=== PATIENT | female | born 1985 | race Caucasian/White ===

== ENCOUNTER 2022-04-29 11:27 | Inpatient (IN) | payer SELFPAY ==
--- OUTSIDE RECORDS SUMMARY | 2022-04-29 11:31 | XMS REPORT | Continuity of Care Document ---
:1985 Author Organization [facility] t Address [address] [place] [address] Care Team Providers Name Role Phone Jl Easton MD Primary Care Physician Jl Easton MD Attending Clinician JL EASTON Attending Clinician Unavailable Doctor Unassigned, [place] Attending Clinician Unavailable Yulisa Walsh RN Attending Clinician Unavailable Payers Payer Name Policy Type Policy Number Effective Date Expiration Date S amy [employer] [id number] 2019 NON-CONTRACT 00:00:00 GENERIC Problems Condition Condition Condition Status Onset Resolution Last Treating Co mments Source Name Details Category Date Date Treatment Clinician Date Anxiety Anxiety Disease Active Univers 08-28 ity of 00:00: [place] 00 Medical Branch Substance Substance Disease Active 2014-03 Overview: Univers abuse abuse 1-17 Formattin ity of 00:00: g of this [place] 00 note Medical might be Branch different from the original. Xanax and hyrdrocod one Attention Attention Disease Active 2014-03 Uni vers deficit deficit 1-17 ity of disorder disorder 00:00: [place] of adult of adult 00 Medica l Branch Mixed Mixed Disease Active Overview: Univer s bipolar I bipolar I 7-15 Formattin i ty of disorder disorder 00:00: g of this [place] 00 note Medical might be Branch different from the original. ICD10 Diagnosis Term Salesperson Books Utility Allergies, Adverse Reactions, Alerts Allergy Allergy Status Severity Reaction(s) Onset Inactive Treating Comm ents Source Name Type Date Date Clinician NO KNOWN Drug Active Univers ALLERGIE Class ity of S [facility] Social History Social Habit Start Date Stop Date Quantity Comments Source History of tobacco Cigarette Smoker University of use [facility] Exposure to Not sure University of SARS-CoV-2 (event) [facility] Cigarettes smoked 2022-01-22 2022-01-22 Univers ity of current (pack per 00:00:00 00:00:00 ) - Reported Branch Tobacco use and 2022-01-22 2022-01-22 Smokeless Universit y of exposure 00:00:00 00:00:00 tobacco non-user [facility] Alcohol intake 2022-01-22 2022-01-22 0 /d University 00:00:00 00:00:00 [facility] Sex Ass[birth year] Universit y of 00:00:00 00:00:00 [facility] Smoking Status Start Date Stop Date Source Smokes tobacco daily 2022-01-22 00:00:00 Univers ity of [facility] Medications Ordered Filled Start Stop Current Ordering Indication Dosage Frequency Signature Comments Components Source Medication Medication Date Date Medication? Clinician (SIG) Name Name ALPRAZOLAM Yes [id number] TAKE 1 U nivers 1 mg tablet 8-15 TABLET BY ity of 00:00: MOUTH IN [place] 00 THE Medical MORNING Branch AND IN THE EVENING ALPRAZOLAM Yes [id number] TAKE 1 U nivers 1 mg tablet 8-15 TABLET BY ity of 00:00: MOUTH IN [place] 00 THE Medical MORNING Branch AND IN THE EVENING ALPRAZOLAM No [id number] TAKE 1 Univers 1 mg tablet 8-15 -26 TABLET BY it y of 00:00: 00:00 MOUTH IN [place] 00 :00 THE Medical MORNING Branch AND IN THE EVENING dextroamphe Yes [id number] 30mg Take 1 Univers tamine-amph 8-12 tablet by ity of etamine 00:00: mouth in [place] (ADDERALL) 00 the Medical 30 mg morning Branch tablet and 1 tablet in the evening. dextroamphe Yes [id number] 30mg Take 1 Univers tamine-amph 8-12 tablet by ity of etamine 00:00: mouth in [place] (ADDERALL) 00 the Medical 30 mg morning Branch tablet and 1 tablet in the evening. dextroamphe 0 Yes [id number] 30mg Take 1 Univers tamine-amph 8-12 tablet by ity of etamine 00:00: mouth in [place] (ADDERALL) 00 the Medical 30 mg morning Branch tablet and 1 tablet in the evening. dextroamphe 0 2021- No [id number] 30mg Take 1 Univers tamine-amph 8-12 10-26 tablet by it y of etamine 00:00: 00:00 mouth in [place] (ADDERALL) 00 :00 the Medical 30 mg morning Branch tablet and 1 tablet in the evening. molnupiravi 0 Yes [id number] 800mg Take 4 Univers r 200 mg 7-27 capsules ity of capsule 00:00: by mouth [place] 00 every 12 Medical (twelve) Branch hours. molnupiravi 0 Yes [id number] 800mg Take 4 Univers r 200 mg 7-27 capsules ity of capsule 00:00: by mouth [place] 00 every 12 Medical (twelve) Branch hours. molnupiravi 0 Yes [id number] 800mg Take 4 Univers r 200 mg 7-27 capsules ity of capsule 00:00: by mouth [place] 00 every 12 Medical (twelve) Branch hours. molnupiravi 0 Yes [id number] 800mg Take 4 Univers r 200 mg 7-27 capsules ity of capsule 00:00: by mouth [place] 00 every 12 Medical (twelve) Branch hours. molnupiravi 0 Yes [id number] 800mg Take 4 Univers r 200 mg 7-27 capsules ity of capsule 00:00: by mouth [place] 00 every 12 Medical (twelve) Branch hours. molnupiravi 0 Yes [id number] 800mg Take 4 Univers r 200 mg 7-27 capsules ity of capsule 00:00: by mouth [place] 00 every 12 Medical (twelve) Branch hours. molnupiravi 0 2021- No [id number] 800mg Take 4 Univers r 200 mg 7-27 10-26 capsules ity of capsule 00:00: 00:00 by mouth [place] 00 :00 every 12 Medical (twelve) Branch hours. ALPRAZolam 2022-0 Yes [id number] 1mg Take 1 U nivers 1 mg tablet 7-12 tablet by ity of 00:00: mouth in [place] 00 the Medical morning Branch and 1 tablet in the evening. dextroamphe 2-0 Yes [id number] 30mg Take 1 Univers tamine-amph 7-12 tablet by ity of etamine 00:00: mouth in [place] (ADDERALL) 00 the Medical 30 mg morning Branch tablet and 1 tablet in the evening. ALPRAZolam 2021-0 Yes [id number] 1mg Take 1 U nivers 1 mg tablet 7-12 tablet by ity of 00:00: mouth in [place] 00 the Medical morning Branch and 1 tablet in the evening. dextroamphe 2-0 Yes [id number] 30mg Take 1 Univers tamine-amph 7-12 tablet by ity of etamine 00:00: mouth in [place] (ADDERALL) 00 the Medical 30 mg morning Branch tablet and 1 tablet in the evening. ALPRAZolam 2021-0 Yes [id number] 1mg Take 1 U nivers 1 mg tablet 7-12 tablet by ity of 00:00: mouth in [place] 00 the Medical morning Branch and 1 tablet in the evening. dextroamphe 2-0 Yes [id number] 30mg Take 1 Univers tamine-amph 7-12 tablet by ity of etamine 00:00: mouth in [place] (ADDERALL) 00 the Medical 30 mg morning Branch tablet and 1 tablet in the evening. ALPRAZolam 2021-0 Yes [id number] 1mg Take 1 U nivers 1 mg tablet 7-12 tablet by ity of 00:00: mouth in [place] 00 the Medical morning Branch and 1 tablet in the evening. dextroamphe 2-0 Yes [id number] 30mg Take 1 Univers tamine-amph 7-12 tablet by ity of etamine 00:00: mouth in [place] (ADDERALL) 00 the Medical 30 mg morning Branch tablet and 1 tablet in the evening. ALPRAZolam 2021-0 Yes [id number] 1mg Take 1 U nivers 1 mg tablet 7-12 tablet by ity of 00:00: mouth in [place] 00 the Medical morning Branch and 1 tablet in the evening. dextroamphe 2022-0 Yes [id number] 30mg Take 1 Univers tamine-amph 7-12 tablet by ity of etamine 00:00: mouth in [place] ([facility]) 00 the Medical 30 mg morning Branch tablet and 1 tablet in the evening. ALPRAZolam 2-0 Yes [id number] 1mg Take 1 U nivers 1 mg tablet 7-12 tablet by ity of 00:00: mouth in [place] 00 the Medical morning Branch and 1 tablet in the evening. dextroamphe 2-0 Yes [id number] 30mg Take 1 Univers tamine-amph 7-12 tablet by ity of etamine 00:00: mouth in [place] ([facility]) 00 the Medical 30 mg morning Branch tablet and 1 tablet in the evening. ALPRAZolam 2021-0 Yes [id number] 1mg Take 1 U nivers 1 mg tablet 7-12 tablet by ity of 00:00: mouth in [place] 00 the Medical morning Branch and 1 tablet in the evening. dextroamphe 2-0 Yes [id number] 30mg Take 1 Univers tamine-amph 7-12 tablet by ity of etamine 00:00: mouth in [place] ([facility]) 00 the Medical 30 mg morning Branch tablet and 1 tablet in the evening. ALPRAZolam 2021-0 Yes [id number] 1mg Take 1 U nivers 1 mg tablet 7-12 tablet by ity of 00:00: mouth in [place] 00 the Medical morning Branch and 1 tablet in the evening. dextroamphe 2-0 Yes [id number] 30mg Take 1 Univers tamine-amph 7-12 tablet by ity of etamine 00:00: mouth in [place] ([facility]) 00 the Medical 30 mg morning Branch tablet and 1 tablet in the evening. ALPRAZolam 2021-0 Yes [id number] 1mg Take 1 U nivers 1 mg tablet 7-12 tablet by ity of 00:00: mouth in [place] 00 the Medical morning Branch and 1 tablet in the evening. dextroamphe 2-0 Yes [id number] 30mg Take 1 Univers tamine-amph 7-12 tablet by ity of etamine 00:00: mouth in [place] ([facility]) 00 the Medical 30 mg morning Branch tablet and 1 tablet in the evening. ALPRAZolam 2-0 Yes [id number] 1mg Take 1 U nivers 1 mg tablet 7-12 tablet by ity of 00:00: mouth in [place] 00 the Medical morning Branch and 1 tablet in the evening. ALPRAZolam 2021-2021- No [id number] 1mg Take 1 Univers 1 mg tablet 7-12 08-15 tablet by it y of 00:00: 00:00 mouth in [place] 00 :00 the Medical morning Branch and 1 tablet in the evening. dextroamphe 2021-0 2021- No [id number] 30mg Take 1 Univers tamine-amph 7-12 08-12 tablet by it y of etamine 00:00: 00:00 mouth in [place] (ADDERALL) 00 :00 the Medical 30 mg morning Branch tablet and 1 tablet in the evening. dextroamphe 2021-0 Yes [id number] 30mg Take 1 Univers tamine-amph 6-14 tablet by ity of etamine 00:00: mouth 2 [place] (ADDERALL) 00 (two) Medical 30 mg times Branch tablet daily. ALPRAZolam 2021- Yes [id number] 1mg Take 1 U nivers 1 mg tablet 6-14 tablet by ity of 00:00: mouth 2 [place] 00 (two) Medical times Branch daily. dextroamphe 2021-2021- No [id number] 30mg Take 1 Univers tamine-amph 6-14 07-12 tablet by it y of etamine 00:00: 00:00 mouth 2 [place] (ADDERALL) 00 :00 (two) Medical 30 mg times Branch tablet daily. ALPRAZolam 2021-2021- No [id number] 1mg Take 1 Univers 1 mg tablet 6-14 07-12 tablet by it y of 00:00: 00:00 mouth 2 [place] 00 :00 (two) Medical times Branch daily. dextroamphe 2021-0 Yes [id number] 30mg Take 1 Univers tamine-amph 5-24 tablet by ity of etamine 00:00: mouth 2 [place] (ADDERALL) 00 (two) Medical 30 mg times Branch tablet daily. dextroamphe 2021-0 2- No [id number] 30mg Take 1 Univers tamine-amph 5-24 06-14 tablet by it y of etamine 00:00: 00:00 mouth 2 [place] (ADDERALL) 00 :00 (two) Medical 30 mg times Branch tablet daily. dextroamphe 2021-0 Yes [id number] 30mg Take 1 Univers tamine-amph 4-19 tablet by ity of etamine 00:00: mouth 2 [place] (ADDERALL) 00 (two) Medical 30 mg times Branch tablet daily. dextroamphe 2021-0 2- No [id number] 30mg Take 1 Univers tamine-amph 4-19 05-24 tablet by it y of etamine 00:00: 00:00 mouth 2 [place] (ADDERALL) 00 :00 (two) Medical 30 mg times Branch tablet daily. dextroamphe 2021-0 Yes [id number] 30mg Take 1 Univers tamine-amph 3-24 tablet by ity of etamine 00:00: mouth 2 [place] (ADDERALL) 00 (two) Medical 30 mg times Branch tablet daily. dextroamphe 0 2021- No [id number] 30mg Take 1 Univers tamine-amph 3-24 04-19 tablet by it y of etamine 00:00: 00:00 mouth 2 [place] (ADDERALL) 00 :00 (two) Medical 30 mg times Branch tablet daily. azithromyci 2021-0 Yes [id number] 500mg Take 1 Univers n 500 mg 2-25 tablet by ity of tablet 00:00: mouth 00 daily. Medical Branch dextroamphe 2021-0 Yes [id number] 30mg Take 1 Univers tamine-amph 2-25 tablet by ity of etamine 00:00: mouth 2 [place] (ADDERALL) 00 (two) Medical 30 mg times Branch tablet daily. ALPRAZolam 2021-0 Yes [id number] 1mg Take 1 U nivers 1 mg tablet 2-25 tablet by ity of 00:00: mouth 2 [place] 00 (two) Medical times Branch daily. azithromyci 2021-0 Yes [id number] 500mg Take 1 Univers n 500 mg 2-25 tablet by ity of tablet 00:00: mouth [place] 00 daily. Medical Branch ALPRAZolam 2021-0 Yes [id number] 1mg Take 1 U nivers 1 mg tablet 2-25 tablet by ity of 00:00: mouth 2 [place] 00 (two) Medical times Branch daily. azithromyci 2021-0 Yes [id number] 500mg Take 1 Univers n 500 mg 2-25 tablet by ity of tablet 00:00: mouth [place] 00 daily. Medical Branch ALPRAZolam 2021-0 Yes [id number] 1mg Take 1 U nivers 1 mg tablet 2-25 tablet by ity of 00:00: mouth 2 [place] 00 (two) Medical times Branch daily. azithromyci 2021-0 Yes [id number] 500mg Take 1 Univers n 500 mg 2-25 tablet by ity of tablet 00:00: mouth [place] 00 daily. Medical Branch ALPRAZolam 2021-0 Yes [id number] 1mg Take 1 U nivers 1 mg tablet 2-25 tablet by ity of 00:00: mouth 2 [place] 00 (two) Medical times Branch daily. azithromyci 2021-0 Yes [id number] 500mg Take 1 Univers n 500 mg 2-25 tablet by ity of tablet 00:00: mouth [place] 00 daily. Medical Branch azithromyci 2021-0 Yes [id number] 500mg Take 1 Univers n 500 mg 2-25 tablet by ity of tablet 00:00: mouth [place] 00 daily. Medical Branch azithromyci 2021-0 Yes [id number] 500mg Take 1 Univers n 500 mg 2-25 tablet by ity of tablet 00:00: mouth [place] 00 daily. Medical Branch azithromyci 2021-0 Yes [id number] 500mg Take 1 Univers n 500 mg 2-25 tablet by ity of tablet 00:00: mouth [place] 00 daily. Medical Branch azithromyci 2021-0 Yes [id number] 500mg Take 1 Univers n 500 mg 2-25 tablet by ity of tablet 00:00: mouth [place] 00 daily. Medical Branch azithromyci 2021-0 Yes [id number] 500mg Take 1 Univers n 500 mg 2-25 tablet by ity of tablet 00:00: mouth [place] 00 daily. Medical Branch azithromyci 2021-0 Yes [id number] 500mg Take 1 Univers n 500 mg 2-25 tablet by ity of tablet 00:00: mouth [place] 00 daily. Medical Branch azithromyci 2021-0 Yes [id number] 500mg Take 1 Univers n 500 mg 2-25 tablet by ity of tablet 00:00: mouth [place] 00 daily. Medical Branch azithromyci 2021-0 Yes [id number] 500mg Take 1 Univers n 500 mg 2-25 tablet by ity of tablet 00:00: mouth [place] 00 daily. Medical Branch azithromyci 2021-0 Yes [id number] 500mg Take 1 Univers n 500 mg 2-25 tablet by ity of tablet 00:00: mouth [place] 00 daily. Medical Branch azithromyci 2021-0 Yes [id number] 500mg Take 1 Univers n 500 mg 2-25 tablet by ity of tablet 00:00: mouth [place] 00 daily. Medical Branch azithromyci 2021-0 Yes [id number] 500mg Take 1 Univers n 500 mg 2-25 tablet by ity of tablet 00:00: mouth [place] 00 daily. Medical Branch azithromyci 2021-0 Yes [id number] 500mg Take 1 Univers n 500 mg 2-25 tablet by ity of tablet 00:00: mouth [place] 00 daily. Medical Branch azithromyci 0 Yes [id number] 500mg Take 1 Univers n 500 mg 2-25 tablet by ity of tablet 00:00: mouth [place] 00 daily. Medical Branch azithromyci 2021-0 Yes [id number] 500mg Take 1 Univers n 500 mg 2-25 tablet by ity of tablet 00:00: mouth [place] 00 daily. Medical Branch azithromyci 0 Yes [id number] 500mg Take 1 Univers n 500 mg 2-25 tablet by ity of tablet 00:00: mouth [place] 00 daily. Medical Branch ALPRAZolam 2021- No [id number] 1mg Take 1 Univers 1 mg tablet 2-25 06-14 tablet by it y of 00:00: 00:00 mouth 2 [place] 00 :00 (two) Medical times Branch daily. dextroamphe 2021- No [id number] 30mg Take 1 Univers tamine-amph 2-25 03-24 tablet by it y of etamine 00:00: 00:00 mouth 2 [place] (ADDERALL) 00 :00 (two) Medical 30 mg times Branch tablet daily. ALPRAZolam Yes [id number] 1mg Take 1 U nivers 1 mg tablet 1-19 tablet by ity of 00:00: mouth 2 [place] 00 (two) Medical times Branch daily. dextroamphe 2021- Yes [id number] 30mg Take 1 Univers tamine-amph 1-19 tablet by ity of etamine 00:00: mouth 2 [place] (ADDERALL) 00 (two) Medical 30 mg times Branch tablet daily. Procedures Procedure Date / Time Performing Clinician Source Performed AUTHORIZATION FOR RELEASE 2021-10-23 05:01:00 Doctor Unassigned, [facility] STATEMENT OF PATIENT 2021-05-24 06:01:00 Doctor Lashandasscarla, [facility] FINANCIAL RESPONSIBILITY [place] [facility] Encounters Start End Encounter Admission Attending Care Care Encounter Source Date/Time Date/Time Type Type Clinicians Facility Department ID 2022-01-22 2022-01-22 [facility] 1.2.840.114 [id number] Univers 00:00:00 00:00:00 Jl GLOSTER 350.1.13.10 i ty of [place] [id number] [address] 2022-01-21 2022-01-21 [facility] 1..840.114 [id number] Univers 00:00:00 00:00:00 [facility] 350.1.13.10 it y of [place] [facility] 4.2.7.2.686 [place] OSWALD?BLEA [id number] [address] MEDICAL [facility] 2021-11-15 2021-11-15 Outpatient [facility] [id number] Univers 16:00:00 16:00:00 JL [facility] 2021-11-15 2021-11-15 [facility] 1..840.114 [id number] Univers 00:00:00 00:00:00 [facility] 350.1.13.10 it y of [place] [facility] 4.2.7.2.686 [place] OSWALD?BLEA [id number] [address] [facility] 2021-11-11 2021-11-11 Outpatient [facility] [id number] Univers 09:00:00 09:00:00 JL [facility] 2021-11-10 2021-11-10 Refill [facility] 1.2.840.114 [id number] Univers 00:00:00 00:00:00 [facility] 350.1.13.10 it y of [place] 4.2.7.2.686 [place] OSWALD?BLEA [id number] [address] [facility] 2021-11-08 2021-11-08 Refill [facility] 1.2.840.114 [id number] Univers 00:00:00 00:00:00 Jl [facility] 350.1.13.10 it y of [place] 4.2.7.2.686 [place] OSWALD?BLEA [id number] [address] 2021-11-06 2021-11-06 Outpatient R [facility] [id number] Univers 15:30:00 15:30:00 [facility] 2021-11-04 2021-11-04 Outpatient R [facility] [id number] Univers 13:15:00 13:15:00 [facility] 2021-11-01 2021-11-01 Letter [facility] 1.2.840.114 [id number] Univers 00:00:00 00:00:00 (Out) [facility] 350.1.13.10 it y of [place] 4.2.7.2.686 [place] OSWALD?BLEA [id number] [address] 2021-10-23 2021-10-23 Outpatient R [facility] [id number] Univers 15:15:00 15:15:00 [facility] 2021-10-23 2021-10-23 Telephone [facility] 1.2.840.114 [id number] Univers 00:00:00 00:00:00 Jl [facility] 350.1.13.10 it y of [place] 4.2.7.2.686 [place] OSWALD?BLEA [id number] [address] [facility] 2021-10-23 2021-10-23 Orders Doctor PLASCENCIA 1.2.840.114 [id number] Univers 00:00:00 00:00:00 Only Unassigned, ELIZABETH 350.1.13.10 ity of [place] [facility] 4.2.7.2.686 [place] as [id number] [address] 2021-10-22 2021-10-22 Letter [facility] 1.2.840.114 [id number] Univers 00:00:00 00:00:00 (Out) [facility] 350.1.13.10 it y of [place] 4.2.7.2.686 [place] OSWALD?BLEA [id number] [address] [facility] 2021-10-15 2021-10-15 Telephone [facility] 1.2.840.114 [id number] Univers 00:00:00 00:00:00 [facility] 350.1.13.10 it y of [place] 4.2.7.2.686 [place] OSWALD?BLEA [id number] [address] [facility] 2021-10-10 2021-10-10 [facility] 1.2.840.114 [id number] Univers 00:00:00 00:00:00 [facility] 350.1.13.10 it y of [place] 4.2.7.2.686 [place] OSWALD?BLEA [id number] [address] 2021-10-09 2021-10-09 [facility] 1.2.840.114 [id number] Univers 00:00:00 00:00:00 Jl GLOSTER 350.1.13.10 i ty of [place] [id number] [address] 2021-10-08 2021-10-08 [facility] 1.[facility].840.114 [id number] Univers 00:00:00 00:00:00 [facility] 350.1.13.10 it y of [place] 4.2.7.2.686 [place] OSWALD?BLEA [id number] [address] [facility] 2021-10-07 2021-10-07 [facility] 1.2.840.114 [id number] Univers 00:00:00 00:00:00 Jl HEALTH 350.1.13.10 it y of [place] 4.2.7.2.686 [place] OSWALD?BLEA [id number] [address] [facility] 2021-10-07 2021-10-07 [facility] 1.2.840.114 [id number] Univers 00:00:00 00:00:00 Jl HEALTH 350.1.13.10 it y of [place] 4.2.7.2.686 [place] OSWALD?BLEA [id number] [address] 2021-09-10 2021-09-10 [facility] 1.2.840.114 [id number] Univers 00:00:00 00:00:00 Jl HEALTH 350.1.13.10 it y of [place] 4.2.7.2.686 [place] OSWALD?BLEA [id number] [address] [facility] 2021-08-19 2021-08-19 [facility] 1.2.840.114 [id number] Univers 00:00:00 00:00:00 Jl HEALTH 350.1.13.10 it y of [place] 4.2.7.2.686 [place] OSWALD?BLEA [id number] [address] 2021-07-16 2021-07-16 [facility] 1.2.840.114 [id number] Univers 00:00:00 00:00:00 Jl HEALTH 350.1.13.10 it y of [place] 4.2.7.2.686 [place] OSWALD?BLEA [id number] [address] 2021-06-19 2021-06-19 [facility] 1.2.840.114 [id number] Univers 00:00:00 00:00:00 Jl HEALTH 350.1.13.10 it y of [place] 4.2.7.2.686 [place] OSWALD?BLEA [id number] [address] [facility] 2021-05-24 2021-05-24 Outpatient Aidee [facility] [id number] Univers 13:30:00 13:30:00 JL louie [facility] 2021-05-24 2021-05-24 Outpatient R PAULA [facility] [id number] Univers 10:15:00 10:15:00 JL [facility] 2021-05-24 2021-05-24 Orders Doctor TEMO 1.2.840.114 [id number] Univers 00:00:00 00:00:00 Only Unassigned, ELIZABETH 350.1.13.10 ity of [place] [facility] 4.2.7.2.686 [place] as [id number] [address] 2021-05-17 2021-05-17 [facility] 1.2.840.114 [id number] Univers 00:00:00 00:00:00 [facility] 350.1.13.10 it y of [place] 4.2.7.2.686 [place] as OSWALD?BLEA [id number] [address] [facility] 2021-05-15 2021-05-15 [facility] 1.2.840.114 [id number] Univers 00:00:00 00:00:00 [facility] 350.1.13.10 it y of [place] 4.2.7.2.686 [place] as OSWALD?BLEA [id number] [address] [facility] 2021-04-17 2021-04-17 [facility] 1.2.840.114 [id number] Univers 00:00:00 00:00:00 [facility] 350.1.13.10 it y of [place] 4.2.7.2.686 [place] as OSWALD?BLEA [id number] [address] [facility] 2021-04-16 2021-04-16 [facility] 1.2.840.114 [id number] Univers 00:00:00 00:00:00 [facility] 350.1.13.10 it y of [place] 4.2.7.2.686 [place] as OSWALD?BLEA [id number] Pr argelia FORRESTER [address] [place] [address] [facility] 2021-03-06 2021-03-06 [facility] 1.2.840.114 [id number] Univers 00:00:00 00:00:00 [facility] HEALTH 350.1.13.10 it y of [place] 4.2.7.2.686 [place] as OSWALD?BLEA [id number] Pr argelia FORRESTER [address] [place] [address] [facility] 2021-02-22 2021-02-22 [facility] 1.2.840.114 [id number] Univers 00:00:00 00:00:00 [facility] 350.1.13.10 it y of [place] 4.2.7.2.686 [place] as PROFESSIO [id number] [facility] MAG[facility]ON [address] [place] [address] 2021-02-12 2021-02-12 [facility] 1.2.840.114 [id number] [facility] [place] [facility] 00:00:00 00:00:00 [facility] 350.1.13.10 it y of [place] 4.2.7.2.686 [place] as OSWALD?BLEA [id number] [address] [facility] 2021-02-05 2021-02-05 [facility] 1.2.840.114 [id number] Univers 00:00:00 00:00:00 [facility] 350.1.13.10 it y of [place] 4.2.7.2.686 [place] as OSWALD?BLEA [id number] Pr argelia FORRESTER [address] [place] [address] [facility] 2021-02-04 2021-02-04 [facility] 1.2.840.114 [id number] Univers 00:00:00 00:00:00 [facility] 350.1.13.10 it y of [place] 4.2.7.2.686 [place] as OSAWLD?BLEA [id number] Me [address] [facility] 2021-01-14 2021-01-14 Telephone [facility] 1.2.840.114 [id number] Univers 00:00:00 00:00:00 Jl Health 350.1.13.10 it y of [place] 4.2.7.2.686 [place] as Oswald?Blea [id number] [address] Office [facility] 2021-01-08 2021-01-08 [facility] 1.2.840.114 [id number] Univers 00:00:00 00:00:00 Jl Health 350.1.13.10 it y of [place] 4.2.7.2.686 [place] Oswald?Blea [id number] [address] Office [facility] 2020-12-14 2020-12-14 [facility] 1.2.840.114 [id number] Univers 00:00:00 00:00:00 [facility] [id number] it y of [place] [id number] Kwaku as Oswald?Blea [phone] [address] Office [facility] 2020-12-13 2020-12-13 [facility] 1.2.840.114 [id number] Univers 00:00:00 00:00:00 [facility] 350.1.13.10 it y of [place] [id number] Kwaku as Oswald?Blea [phone] [address] Medical Office [facility] 2020-12-11 2020-12-11 [facility] 1.2.840.114 [id number] Univers 00:00:00 00:00:00 [facility] 350.1.13.10 it y of [place] 4.2.7.2.686 Kwaku as Oswald?Blea [phone] [address] Office [facility] 2020-12-11 2020-12-11 [facility] 1.2.840.114 [id number] Univers 00:00:00 00:00:00 [facility] [id number] it y of [place] 4.2.7.2.686 Kwaku as Professio [phone] [address] One 2020-11-05 2020-11-05 Telephone Jillian Perdue 1.2.840.114 [id number] Univers 00:00:00 00:00:00 , Yulisa Valerio [id number] ity [place] [phone] [address] 2020-10-19 2020-10-19 [facility] 1.2.840.114 [id number] [facility] 00:00:00 00:00:00 [facility] [id number] it y of [place] 4.2.7.2.686 Kwaku as Professio [phone] [address] One 2020-10-05 2020-10-05 [facility] 1.2.840.114 [id number] [facility] 15:57:49 16:12:49 Visit [facility] [id number] it y of [place] 4.2.7.2.686 Kwaku as Professio [phone] [address] One 2020-10-05 2020-10-05 Outpatient [facility] [id number] Univers 16:00:00 16:00:00 JL [facility] 2020-10-01 2020-10-01 Outpatient [facility] [id number] Univers 10:45:00 10:45:00 JL [facility] 2020-09-28 2020-09-28 Outpatient [facility] [id number] Univers 08:15:00 08:15:00 JL [facility] 2020-09-28 2020-09-28 Orders Doctor PLASCENCIA 1.2.840.114 [id number] Univers 00:00:00 00:00:00 Only Unassigned, ELIZABETH [id number] ity of [place] [facility] 4.2.7.2.686 Kwaku as [phone] [address] 2020-09-19 2020-09-19 [facility] 1.2.840.114 [id number] Univers 00:00:00 00:00:00 [facility] 350.1.13.10 it y of [place] 4.2.7.2.686 Kwaku as Professio [phone] [address] One 2020-09-13 2020-09-13 [facility] 1.2.840.114 [id number] Univers 00:00:00 00:00:00 [facility] Health [id number] it y of [place] 4.2.7.2.686 Kwaku as Professio [phone] [address] 2020-08-14 2020-08-14 [facility] 1.2.840.114 [id number] Univers 00:00:00 00:00:00 [facility] 350.1.13.10 it y of [place] 4.2.7.2.686 Kawku as Professio [phone] [address] 2020-07-20 2020-07-20 [facility] 1.2.840.114 [id number] Univers 00:00:00 00:00:00 [facility] 350.1.13.10 it y of [place] 4.2.7.2.686 Kwaku as Professio [phone] [address] 2020-06-28 2020-06-28 [facility] 1.2.840.114 [id number] Univers 00:00:00 00:00:00 [place] 350.1.13.10 i ty of [place]2.[place] Profess[place] [phone] [address] 2020-06-28 2020-06-28 [facility] 1.2.840.114 [id number] Univers 00:00:00 00:00:00 [facility] Health [id number] it y of [place] 4.2.7.2.686 Kwaku as Professio [phone] [address] One 2020-06-04 2020-06-04 Telephone [facility] 1.2.840.114 [id number] Univers 00:00:00 00:00:00 [facility] 350.1.13.10 it y of [place] 4.2.7.2.686 Kwaku as Professio [phone] [address] One 2020-05-29 2020-05-29 Office [facility] 1.2.840.114 [id number] Univers 09:11:27 09:26:27 Visit [facility] 350.1.13.10 it y of [place] 4.2.7.2.686 Kwaku as Professio [phone] [address] One 2020-05-29 2020-05-29 Outpatient [facility] [id number] Univers 09:15:00 09:15:00 JL ity of [facility] 2020-05-11 2020-05-11 [facility] 1.2.840.114 [id number] [facility] 00:00:00 00:00:00 [facility] [id number] it y of [place] 4.2.7.2.686 Kwaku as Professio [phone] [address] One 2020-04-17 2020-04-17 [facility] 1.2.840.114 [id number] Univers 00:00:00 00:00:00 [facility] 350.1.13.10 it y of [place] 4.2.7.2.686 Kwaku as Professio [phone] [address] One 2020-03-19 2020-03-19 [facility] 1.2.840.114 [id number] Univers 00:00:00 00:00:00 [facility] 350.1.13.10 it y of [place] 4.2.7.2.686 Kwaku as Professio [phone] Pr deepa[address] Office [facility] One 2020-02-21 2020-02-21 Telephone [facility] 1.2.840.114 [id number] Univers 00:00:00 00:00:00 [facility] 350.1.13.10 it y of [place] 4.2.7.2.686 Kwaku as Professio [phone] [address] Office [facility] One 2020-02-21 2020-02-21 [facility] 1.2.840.114 [id number] Univers 00:00:00 00:00:00 [facility] 350.1.13.10 it y of [place] 4.2.7.2.686 Kwaku as Professio [phone] [address] One 2020-02-20 2020-02-20 [facility] 1.2.840.114 [id number] Univers 00:00:00 00:00:00 [facility] 350.1.13.10 it y of [place] 4.2.7.2.686 Kwaku as Professio [phone] [address] One 2020-02-03 2020-02-03 Outpatient [facility] [id number] Univers 08:30:00 08:30:00 [facility] 2020-01-27 2020-01-27 Office [facility] 1.2.840.114 [id number] Univers 08:12:27 09:20:41 Visit [facility] 350.1.13.10 it y of [place] 4.2.7.2.686 Kwaku as Professio [phone] [address] Office [facility] One 2020-01-27 2020-01-27 [facility] [id number] Univers 08:45:00 08:45:00 [facility] 2020-01-25 2020-01-25 [facility] 1.2.840.114 [id number] Univers 00:00:00 00:00:00 [facility] 350.1.13.10 it y of [place] 4.2.7.2.686 Kwaku as Professio [phone] [address] 2019-12-27 2019-12-27 [facility] 1.2.840.114 [id number] Univers 00:00:00 00:00:00 [facility] 350.1.13.10 it y of [place] 4.2.7.2.686 Kwaku as Professio [phone] [address] 2019-11-23 2019-11-23 [facility] [place] 1.2.840.114 [id number] Univers 00:00:00 00:00:00 Jl JOHNSON 350.1.13.10 it y of [facility] 4.2.7.2.686 Kwaku as [phone] [address] 2019-10-28 2019-10-28 [facility] 1.2.840.114 [id number] Univers 00:00:00 00:00:00 [facility] 350.1.13.10 [facility] 4.2.7.2.686 Kwaku as Professio [phone] [address] Office [facility] 2019-10-03 2019-10-03 [facility] 1.2.840.114 [id number] [facility] 09:05:24 09:20:24 Visit Jl Mazariegos 350.1.13.10 i ty of [facility] [place] [phone] [address] 2019-10-03 2019-10-03 [facility] [id number] Univers 09:00:00 09:00:00 JL snelly [facility] 2019-08-25 2019-08-25 [facility] 1.2.840.114 [id number] Univers 00:00:00 00:00:00 [facility] 350.1.13.10 it y of [place] 4.2.7.2.686 Kwaku as Professio [phone] [address] Office [facility] 2019-08-01 2019-08-01 [facility] 1.2.840.114 [id number] Univers 00:00:00 00:00:00 [facility] 350.1.13.10 it y of [place] 4.2.7.2.686 Kwaku as Professio [phone] Pr [address] One 2019-07-29 2019-07-29 [facility] 1.2.840.114 [id number] Univers 00:00:00 00:00:00 [facility] 350.1.13.10 it y of [place] 4.2.7.2.686 Kwaku as Professio [phone] Pr dic[address] One 2019-07-04 2019-07-04 [facility] 12.840.114 [id number] Univers 00:00:00 00:00:00 [facility] 350.1.13.10 it y of [place] 4.2.7.2.686 Kwaku as Professio [phone] Pr dical [address] One 2019-06-06 2019-06-06 Office [facility] 1.2.840.114 [id number] Univers 13:27:22 14:05:08 Visit [facility] 350.1.13.10 it y of [place] 4.2.7.2.686 Kwaku as Professio [phone] [address] One 2019-06-06 2019-06-06 [facility] [id number] Univers 13:30:00 13:30:00 JL alexander of [facility] Results This patient has no known results.
[2022-04-29] MEDS ORDERED: hydrOXYzine HCL 25 MG TAB ONE (12:36)
[2022-04-29 12:44] LABS: Urine Blood Trace-intact (Negative); Urine Glucose Negative (Negative); Urine Protein Negative (Negative); Urine pH 5.5 (5.0-7.0)
[2022-04-29 12:58] LABS: Absolute Lymphocytes (CBC) 1.4 K/uL (0.7-4.9); Hematocrit 37.1 % (36.0-45.0); Lymphocytes % 9.4 % (15.3-44.8); MCV 85.1 fL (80-100); MPV 7.9 fL (7.6-11.3); RBC Red Blood Cell Count 4.36 M/uL (3.86-4.86)
[2022-04-29 13:00] LABS: Protime INR 1.14
[2022-04-29 13:16] LABS: Albumin 3.4 g/dL (3.4-5.0); Bilirubin Total 0.3 mg/dL (0.2-1.0); Potassium 3.8 mmol/L (3.5-5.1); Protein, Total 7.8 g/dL (6.4-8.2)
--- NOTE | 2022-04-29 13:36 | RAD REPORT ---
EXAM DESCRIPTION: CTAbdomen Pelvis W Contrast - 04/29/2022 1:27 pm CLINICAL HISTORY: Abdominal pain. lower abdominal swelling, drainage COMPARISON: No comparisons TECHNIQUE: Biphasic CT imaging of the abdomen and pelvis was performed with 100 ml non-ionic IV cont rast. All CT scans are performed using dose optimization technique as appropriate and may include automated exposure control or mA/KV adjustment according to patient size. FINDINGS: The lung bases are clear. The liver, spleen, pancreas, adrenal glands and kidneys are within normal limits. No bowel obstruction, free air, free fluid or abscess. The appendix is normal. No evidence of signi ficant lymphadenopathy. No suspicious bony findings. Mild fat stranding lower pelvic subcutaneous fat in the region of the pannus. IMPRESSION: Mild fat stranding lower pelvic subcutaneous fat anteriorly, in the region of the pannus . No abscess.
[2022-04-29] MEDS ORDERED: LIDOCAINE 1% 20 ML MDV ONE ×2 (13:46→19:43)
--- NOTE | 2022-04-29 14:23 | ER ---
Nurse's Notes [facility] Name: Haven Valencia Age: 36 yrs Sex: Female : 1985 Arrival Date: 04/29/2022 Time: 11:35 Bed 25 Private MD: Diagnosis: Abdominal Wall Cellulitis - Failed Outpatient Therapy Presentation: 04/29 11:54 Chief complaint: Patient states: was seen at [facility] on 04/27/22 and dx with Cellulitis vg1 of ABD and LALO hip; pt states has been taking Bactrim for cellulitis and clindamycin for a toothache. Pt stated 'nothing has changed and Im scared it could be sepsis'. Coronavirus screen: Vaccine status: Patient reports being unvaccinated. Client denies travel out of the [place] in the last 14 days. Ebola Screen: Patient negative for fever greater than or equal to 101.5 degrees Fahrenheit, and additional compatible Ebola Virus Disease symptoms. Initial Sepsis Screen: Does the patient meet any 2 criteria? HR > 90 bpm. Yes. Initial Sepsis Screen: Does the patient meet any 2 criteria? Does the patient have a suspected source of infection?. Risk Assessment: Do you want to hurt yourself or someone else? Patient reports no desire to harm self or others. Onset of symptoms was April 27, 2022. 11:54 Method Of Arrival: Ambulatory vg1 11:54 Acuity: SHAYAN 3 vg1 Triage Assessment: 11:58 General: Appears uncomfortable, Behavior is cooperative, anxious. Pain: Complains of vg1 pain in lower ABD, LALO hips Pain currently is 5 out of 10 on a pain scale. Musculoskeletal: Circulation, motion, and sensation intact. SUBACUTE NURSE: 11:58 LMP 04/05/2022 vg1 Historical: - Allergies: 11:58 No Known Allergies; vg1 - Home Meds: 11:58 Bactrim DS Oral [Active]; Clindamycin Oral [Active]; vg1 - PMHx: 11:58 ADD/ADHD; Anxiety; Depression; drug abuse; vg1 - PSHx: 11:58 section; vg1 - Immunization history:: Client reports having NOT received the Covid vaccine. - Social history:: Smoking status: Patient reports the use of cigarette tobacco products, smokes one-half pack cigarettes per day, Reported history of juuling and/or vaping. Screenin:00 [facility] ED Fall Risk Assessment (Adult) History of falling in the last 3 months, jl7 including since admission No falls in past 3 months (0 pts). Abuse screen: Denies threats or abuse. Denies injuries from another. Nutritional screening: No deficits noted. Tuberculosis screening: No symptoms or risk factors identified. Assessment: 12:30 General: Appears in no apparent distress. uncomfortable, Behavior is cooperative, jl7 anxious. Pain: Complains of pain in abdomen Pain currently is 5 out of 10 on a pain scale. Neuro: Level of Consciousness is awake, alert, obeys commands, Oriented to person, place, time, situation. Cardiovascular: Patient's skin is warm and dry. Respiratory: Airway is patent Respiratory effort is even, unlabored, Respiratory pattern is regular, symmetrical. Derm: Skin is pink, warm \\T\\ dry. Abscess located on abdomen has purulent drainage. 13:30 Reassessment: Patient appears in no apparent distress at this time. Pt reports no jl7 change in anxiety level, reports "I do not want any narcotics.". 14:30 Reassessment: Patient appears in no apparent distress at this time. No changes from jl7 previously documented assessment. Patient and/or family updated on plan of care and expected duration. Pain level reassessed. Patient is alert, oriented x 3, equal unlabored respirations, skin warm/dry/pink. 15:30 Reassessment: Patient appears in no apparent distress at this time. No changes from jl7 previously documented assessment. Patient and/or family updated on plan of care and expected duration. Pain level reassessed. Patient is alert, oriented x 3, equal unlabored respirations, skin warm/dry/pink. 16:30 Reassessment: Patient appears in no apparent distress at this time. No changes from jl7 previously documented assessment. Patient and/or family updated on plan of care and expected duration. Pain level reassessed. Patient is alert, oriented x 3, equal unlabored respirations, skin warm/dry/pink. Vital Signs: 11:54 BP 129 / 100; Pulse 108; Resp 18; Temp 97.9(O); Pulse Ox 100% on R/A; Weight 136.08 kg vg1 (R); Height 5 ft. 6 in. (167.64 cm); Pain 5/10; 13:47 BP 159 / 100; Pulse 106; Resp 15; Pulse Ox 100% ; jl7 11:54 Body Mass Index 48.42 (136.08 kg, 167.64 cm) vg1 ED Course: 11:35 Patient arrived in ED. as 11:36 Antoni Zaragoza PA is PHCP. [facility] 11:36 Audie Ashley MD is Attending Physician. [facility] 11:58 Triage completed. vg1 11:58 Arm band placed on. vg1 12:38 Brice Solomon RN is Primary Nurse. jl7 12:47 Inserted saline lock: 20 gauge in right antecubital area, using aseptic technique. jl7 Blood collected. 12:48 Initial lab(s) drawn, by ED staff, sent to lab. First set of blood cultures drawn by ED jl7 staff. 13:00 Patient has correct armband on for positive identification. jl7 13:28 CT Abd/Pelvis - IV Contrast Only In Process Unspecified. EDMS 14:22 Rigoberto Ashley MD is Hospitalizing Provider. [facility] 15:00 No provider procedures requiring assistance completed. Patient admitted, IV remains in jl7 place. intact, No redness/swelling at site. 19:22 Primary Nurse role handed off by Brice Solomon RN [id number] Administered Medications: 12:44 Drug: hydrOXYzine 50 mg Route: PO; jl7 13:30 Follow up: Response: No adverse reaction jl7 15:31 Not Given (Physician Discretion): Lidocaine (1 %) 1 application 20 ml Infiltration [facility] once; to bedside 15:38 Drug: vancoMYCIN 1.5 grams Route: IVPB; Rate: calculated rate; Site: left forearm; jl7 17:38 Follow up: Response: No adverse reaction; IV Status: Completed infusion jl7 19:46 Drug: diphenhydrAMINE 12.5 mg Route: IVP; Site: left antecubital; kl 22:02 Follow up: Response: No adverse reaction; Marked relief of symptoms kl 20:00 Drug: Lidocaine (1 %) 20 ml {Note: administered by Antoni Ambrose.} Volume: 20 ml; Route: kl Infiltration; Medication: 12:30 VIS not applicable for this client. [facility] Outcome: 14:22 Decision to Hospitalize by Provider. [facility] 15:00 Admitted to ER Hold. Please see [employer] for further documentation. jl7 15:00 Condition: stable 15:00 Discharge instructions given to patient, Instructed on the need for admit, Demonstrated understanding of instructions. 04/30 08:45 Patient left the ED. kl Signatures: Dispatcher [employer] EDRanda Barclay, RN RN Antoni Skinner PA PA jmm Martinez, Amelia as Leal, Jahala, RN RN jl7 Dayan Stout 2 Jannette Rosas RN RN vg1 Corrections: (The following items were deleted from the chart) 04/29 11:59 11:58 Home Meds: Adderall XR 30 mg Oral cp24 1 cap twice a day; vg1 vg1 19:00 14:30 Reassessment: Patient appears in no apparent distress at this time. No changes jl7 from previously documented assessment. Patient and/or family updated on plan of care and expected duration. Pain level reassessed. Patient is alert, oriented x 3, equal unlabored respirations, skin warm/dry/pink. jl7
--- NOTE | 2022-04-29 14:23 | EDPHYS ---
Physician Documentation [facility] Name: Haven Valencia Age: 36 yrs Sex: Female : 1985 Arrival Date: 04/29/2022 Time: 11:35 Bed 25 Private MD: ED Physician Audie Ashley HPI: 04/29 12:00 This 36 yrs old Female presents to ER via Ambulatory with complaints of cellulitis. jmm 12:00 the patient presents with a swollen area of the abdomen. Onset: The symptoms/episode jmm began/occurred gradually, 3 day(s) ago. Possible cause(s): unknown. This is a 36 year old female with a history of add/adhd, anxiety, depression, drug abuse that presents to the ED with complaints of abdominal swelling, with drainage starting yesterday. Patient began taking clindamycin for a toothache this past and began bactrim this Thursday after being seen. Denies fever. . [employer]: 11:58 LMP 04/05/2022 vg1 Historical: - Allergies: 11:58 No Known Allergies; vg1 - Home Meds: 11:58 Bactrim DS Oral [Active]; Clindamycin Oral [Active]; vg1 - PMHx: 11:58 ADD/ADHD; Anxiety; Depression; drug abuse; vg1 - PSHx: 11:58 section; vg1 - Immunization history:: Client reports having NOT received the Covid vaccine. - Social history:: Smoking status: Patient reports the use of cigarette tobacco products, smokes one-half pack cigarettes per day, Reported history of juuling and/or vaping. ROS: 12:00 Constitutional: Negative for fever, chills, and weight loss, Cardiovascular: Negative jmm for chest pain, palpitations, and edema, Respiratory: Negative for shortness of breath, cough, wheezing, and pleuritic chest pain. 12:00 Skin: Positive for swelling. 12:00 All other systems are negative. Exam: 12:00 Constitutional: This is a well developed, well nourished patient who is awake, alert, jmm and in no acute distress. Head/Face: atraumatic. Eyes: EOMI, no conjunctival erythema appreciated ENT: Moist Mucus Membranes Neck: Trachea midline, Supple Chest/axilla: Normal chest wall appearance and motion. Cardiovascular: Regular rate and rhythm. No edema appreciated Respiratory: Normal respirations, no respiratory distress appreciated Abdomen/GI: Non distended Back: Normal ROM 12:00 Skin: induration noted to the suprapubic region, induration appreciated, purulent drainage noted. 12:00 Neuro: Orientation: is normal, Mentation: is normal, Memory: is normal. 12:00 Psych: Behavior/mood is pleasant, cooperative. Vital Signs: 11:54 BP 129 / 100; Pulse 108; Resp 18; Temp 97.9(O); Pulse Ox 100% on R/A; Weight 136.08 kg vg1 (R); Height 5 ft. 6 in. (167.64 cm); Pain 5/10; 13:47 BP 159 / 100; Pulse 106; Resp 15; Pulse Ox 100% ; jl7 11:54 Body Mass Index 48.42 (136.08 kg, 167.64 cm) vg1 Procedures: 20:28 I \T\ D: Incision and drainage was performed for an abscess of the abdomen Prepped with [facility] Betadine, Anesthetized with 10 ml's 1% Lidocaine. Incised with #11 blade. Drained small amount purulent fluid. bloody fluid. Packed with iodoform gauze, Dressing: sterile 4x4 gauze, the patient tolerated the procedure well. MDM: 12:00 Patient medically screened. [facility] 14:07 Data reviewed: vital signs, nurses notes. Consideration of Admission/Observation [facility] Patient was admitted/placed on observation. Management of patient was discussed with the following: Moon Andrews Nieto. I considered the following discharge prescriptions or medication management in the emergency department Medications were administered in the Emergency Department. See MAR. Counseling: I had a detailed discussion with the patient and/or guardian regarding: the historical points, exam findings, and any diagnostic results supporting the discharge/admit diagnosis, lab results, radiology results, the need for further work-up and treatment in the hospital. 04/29 12:15 Order name: CBC with Diff; Complete Time: 13:05 [facility] 04/29 12:15 Order name: CMP; Complete Time: 13:19 [facility] 04/29 12:15 Order name: PT-INR; Complete Time: 13:05 [facility] 04/29 12:15 Order name: Lactate w/ 2H reflex if indic.; Complete Time: 13:19 [facility] 04/29 12:15 Order name: Wound Culture [facility] 04/29 12:15 Order name: Blood Culture Adult (2) [facility] 04/29 12:44 Order name: Urine Dipstick-Ancillary; Complete Time: 12:46 [facility] 04/29 12:45 Order name: Urine --Ancillary (enter results); Complete Time: 13:09 04/29 14:23 Order name: SARS RAPID; Complete Time: 15:33 [facility] 04/29 16:04 Order name: Hemoglobin A1c [facility] 04/29 16:04 Order name: Lipid Profile [facility] 04/29 16:04 Order name: Magnesium [facility] 04/29 16:04 Order name: NT PRO-BNP [facility] 04/29 16:04 Order name: Phosphorus [facility] 04/29 13:06 Order name: CT Abd/Pelvis - IV Contrast Only; Complete Time: 13:39 [facility] 04/29 16:04 Order name: NPO [facility] 04/29 16:04 Order name: Protime (+INR); Complete Time: 19:45 [facility] 04/29 16:04 Order name: Regular [facility] 04/29 16:04 Order name: T4 Free [facility] 04/29 16:04 Order name: Thyroid Stimulating Hormone [facility] 04/29 16:04 Order name: Urinalysis [facility] 04/29 16:04 Order name: Basic Metabolic Panel [facility] 04/29 16:04 Order name: Basic Metabolic Panel [facility] 04/29 16:04 Order name: CBC with Automated Diff [facility] 04/29 16:04 Order name: CBC with Automated Diff [facility] 04/29 12:00 Order name: Gown patient; Complete Time: 12:44 [facility] 04/29 12:15 Order name: Saline Lock; Complete Time: 12:44 [facility] 04/29 12:15 Order name: Urine Dipstick-Ancillary (obtain specimen); Complete Time: 12:44 [facility] 04/29 12:15 Order name: Urine Test (obtain specimen); Complete Time: 12:44 [facility] 04/29 13:48 Order name: I\T\D Setup; Complete Time: 13:48 [facility] Administered Medications: 12:44 Drug: hydrOXYzine 50 mg Route: PO; 13:30 Follow up: Response: No adverse reaction jl7 15:31 Not Given (Physician Discretion): Lidocaine (1 %) 1 application 20 ml Infiltration [facility] once; to bedside 15:38 Drug: vancoMYCIN 1.5 grams Route: IVPB; Rate: calculated rate; Site: left forearm; jl7 17:38 Follow up: Response: No adverse reaction; IV Status: Completed infusion jl7 19:46 Drug: diphenhydrAMINE 12.5 mg Route: IVP; Site: left antecubital; 22:02 Follow up: Response: No adverse reaction; Marked relief of symptoms 20:00 Drug: Lidocaine (1 %) 20 ml {Note: administered by Antoni Ambrose.} Volume: 20 ml; Route: kl Infiltration; Disposition Summary: 04/29/22 14:22 Hospitalization Ordered Hospitalization Status: Observation [facility] Provider: Rigoberto Ashley Condition: Stable [facility] Problem: new [facility] Symptoms: are unchanged [facility] Bed/Room Type: Standard [facility] Location: Telemetry/MedSurg (observation)(04/30/22 06:01) Room Assignment: [facility](04/30/22 06:01) Diagnosis - Abdominal Wall Cellulitis - Failed Outpatient Therapy [facility] Forms: - Medication Reconciliation Form [facility] - SBAR form [facility] Addendum: 05/02/2022 09:42 Co-signature as Attending Physician, Audie Ashley MD I reviewed the patient's care r n provided by the Advanced Practice Provider and agree with the diagnosis and treatment plan. Signatures: Dispatcher [employer] EDMS Blanche Medel Kimberly, RN RN kl Webb, Martha, RN RN Antoni Zaragoza PA PA [facility] Audie Ashley MD MD rn Leal, Jahala, RN RN jl7 Garcia, Victoria, RN RN vg1 Corrections: (The following items were deleted from the chart) 04/29 11:59 11:58 Home Meds: Adderall XR 30 mg Oral cp24 1 cap twice a day; vg1 vg1 19:22 14:22 Telemetry/MedSurg (observation) [facility] jlRoya 19:22 14:22 [facility] jl7 04/30 06:04/29 19:22 [facility] ER HOLD fer 04/30 06:01 04/29 19:22 ERHOLD- jl7 mw
[2022-04-29] MEDS ORDERED: VANCOMYCIN 1.5 GM in NA CHLORIDE 0.9% 500 ML IVPB ONE (15:00)
[2022-04-29 15:26] LABS: SARS-CoV-2 Antigen Rapid Res Negative (Negative)
[2022-04-29] MEDS ORDERED: ONDANSETRON 4 MG/2 ML VIAL IV PRN (15:59)
--- NOTE | 2022-04-29 16:07 | P.HP ---
Certification for Inpatient Patient admitted to: Observation With expected LOS: <2 Midnights Patient will require the following post-hospital care: None Practitioner: I am a practitioner with admitting privileges, knowledge of patient current condition, hospital course, and medical plan of care. Services: Services provided to patient in accordance with Admission requirements found in Title 42 Section 412.3 of the Code of Federal Regulations Patient History Date of Service: 04/29/22 Reason for admission: Abdominla pain\swelling\redness History of Present Illness: Patient is a 36-year-old female with a past medical history significant for morbid obesity, anxiety disorder, ADD, depression, drug abuse who presents with complaint of abdominal pain\redness\tenderness. Patient reported that a week ago she noticed an induration in the periumbilical area. Patient reported the symptoms became worse over time. Patient rated pain as 5/10 in severity and described pain as burning quality. Patient reported associated signs and symptoms of fever, chills, Headache and patient denies any other signs or symptoms. Symptoms are aggravated or relieved by nothing. Patient decided to present to the hospital due to worsening symptoms. Of note, patient was seen at an outpatient facility 2 days ago where she was placed on antibiotics. Patient reported that she has only taken 2 doses of the antibiotics. Allergies No Known Allergies Allergy (Unverified 12/18/15 21:28) Home Medications: NK [No Home Meds] 04/29/22 - Past Medical/Surgical History -: Obesity -: Anxiety disorder -: ADHA -: Depression Past Surgical History: Reviewed- Non-Contributory - Family History Family History: Reviewed- Non-Contributory - Social History Smoking Status: Unknown if ever smoked Alcohol use: No CD- Drugs: No Caffeine use: Yes Place of Residence: Home Review of Systems General: Fever, Chills Eyes: Unremarkable ENT: Unremarkable Respiratory: Other Cardiovascular: Unremarkable Gastrointestinal: Abdominal Pain Genitourinary: Unremarkable Integumentary: Unremarkable Neurological: Weakness, Other (Headache) Lymphatics: Unremarkable Physical Examination - Physical Exam General: Alert, In no apparent distress, Oriented x3, Cooperative HEENT: Atraumatic, PERRLA, Mucous membr. moist/pink, EOMI, Sclerae nonicteric Neck: Supple, 2+ carotid pulse no bruit, No LAD, Without JVD or thyroid abnormality Respiratory: Clear to auscultation bilaterally, Normal air movement Cardiovascular: Regular rate/rhythm, Normal S1 S2 Capillary refill: <2 Seconds Gastrointestinal: Hypoactive, Tenderness Musculoskeletal: No clubbing, No contractures, No tenderness Integumentary: Skin breakdown, Tenderness/swelling, Erythema Neurological: Normal speech, Normal tone, Normal affect Lymphatics: No axilla or inguinal lymphadenopathy - Studies Laboratory Data (last 24 hrs) 04/29/22 12:38: PT 12.5, INR 1.14 04/29/22 12:38: Sodium 139, Potassium 3.8, BUN 10, Creatinine 0.77, Glucose 104, Total Bilirubin 0.3, AST 13 L, ALT 13, Alkaline Phosphatase 71 04/29/22 12:38: WBC 15.00 H, Hgb 12.3, Hct 37.1, Plt Count 322 Assessment and Plan - Plan --Abdominal wall cellulitis. Failed outpatient therapy. Surgeon and infectious disease MD consulted. Continue antibiotics. We will await further recommendations from surgeon. --Acute pain. We will manage pain with current pain medication regimen. --Anxiety disorder\ADHD\depression. Continue home medication when appropriate. --Class III obesity. Likely secondary to excess calories intake. Patient counseled on diet and exercise therapy. --Leukocytosis. Blood cultures pending. Continue antibiotics. --Headache. Tylenol as needed. --History of drug abuse. Patient reported that she has been drug-free for the past 5 months. Continue supportive care. -- DVT prophylaxis with Lovenox subQ. Discharge Plan: Home Plan to discharge in: 48 Hours - Advance Directives Does patient have a Living Will: No Does patient have a Durable POA for Healthcare: No - Code Status/Comfort Care Code Status Assessed: Yes Physician Review: Patient Assessed, Agree with Above Assessment and Plan Critical Care: No
[2022-04-29 18:52] VITALS: BMI 48.4
[2022-04-29] MEDS ORDERED: IBUPROFEN 400 MG TAB ONE (18:54)
[2022-04-29] MEDS ORDERED: ENOXAPARIN 40 MG/0.4 ML SQ ONE (18:54)
[2022-04-29] MEDS: IBUPROFEN 400 MG TAB PO PRN (19:00)
[2022-04-29] MEDS: CLINDAMYCIN 600MG/D5W 50 ML IV SCH (19:03)
[2022-04-29] MEDS: ENOXAPARIN 40 MG/0.4 ML SQ SCH (19:04)
[2022-04-29 19:41] LABS: Protime INR 1.2
[2022-04-29] MEDS ORDERED: DIPHENHYDRAMINE 50 MG/ML VIAL ONE (19:43)
[2022-04-29 23:35] LABS: Magnesium 2.1 mg/dL (1.6-2.4); Phosphorus 2.2 mg/dL (2.5-4.9); Thyroid Stimulating Hormone 1.38 uIU/mL (0.358-3.740)
[2022-04-30] MEDS: CLINDAMYCIN 600MG/D5W 50 ML IV SCH ×3 (01:00→17:11)
[2022-04-30] MEDS ORDERED: ACETAMINOPHEN 325 MG TABLET ONE (01:35)
[2022-04-30] MEDS ORDERED: ONDANSETRON 4 MG/2 ML VIAL ONE ×3 (01:35→15:54)
[2022-04-30 02:57] LABS: Absolute Lymphocytes (CBC) 2.5 K/uL (0.7-4.9); Lymphocytes % 21.4 % (15.3-44.8); MCV 85.1 fL (80-100); MPV 8.2 fL (7.6-11.3); RBC Red Blood Cell Count 3.87 M/uL (3.86-4.86)
[2022-04-30 03:37] LABS: Potassium 3.5 mmol/L (3.5-5.1)
--- NOTE | 2022-04-30 08:25 | P.CNS ---
Date of Consult: 04/30/22 Chief Complaint: Abdominla pain\swelling\redness History of Present Illness: Patient is a 36-year-old female with a past medical history significant for morbid obesity, anxiety disorder, ADD, depression, drug abuse who presents with complaint of abdominal pain\redness\tenderness. Patient reported that a week ago she noticed an induration in the periumbilical area. Patient reported the symptoms became worse over time. Patient rated pain as 5/10 in severity and described pain as burning quality. Patient reported associated signs and symptoms of fever, chills, headache and patient denies any other signs or symptoms. Symptoms are aggravated or relieved by nothing. Patient decided to present to the hospital due to worsening symptoms. Of note, patient was seen at an outpatient facility 2 days ago where she was placed on antibiotics. Patient reported that she has only taken 2 doses of the antibiotics. ID has been consulted for IV antibiotics recommendations and management of abdominal wall infection with abscess Allergies No Known Allergies Allergy (Unverified 12/18/15 21:28) Home Medications: NK [No Home Meds] 04/29/22 - Past Medical/Surgical History -: Obesity -: Anxiety disorder -: ADHA -: Depression -: - Social History Smoking Status: Current every day smoker Alcohol use: No CD- Drugs: No Caffeine use: Yes Place of Residence: Home Review of Systems 10-point ROS is otherwise unremarkable Gastrointestinal: Other (abdominal discomfort with pressure) Integumentary: Lesions (with purulent discharge) Physical Examination Temp Pulse Resp BP Pulse Ox 99.1 F 90 15 128/77 98 04/30/22 04:00 04/30/22 04:00 04/30/22 04:00 04/30/22 04:00 04/30/22 04:00 General: Alert, In no apparent distress, Oriented x3 Neck: Supple Cardiovascular: No edema, Normal S1 S2 Gastrointestinal: Normal bowel sounds Musculoskeletal: No swelling, No contractures, No tenderness Integumentary: Skin lesion (with purulent discharge in the lower abdominal region) Neurological: Normal speech, Normal tone, Normal affect Laboratory Data (last 24 hrs) 04/29/22 12:38: Phosphorus 2.2 L, Magnesium 2.1, Triglycerides 73, Cholesterol 157, HDL Cholesterol 40, Cholesterol/HDL Ratio 3.93 04/29/22 12:38: PT 12.5, INR 1.14 04/29/22 12:38: Sodium 139, Potassium 3.8, BUN 10, Creatinine 0.77, Glucose 104, Total Bilirubin 0.3, AST 13 L, ALT 13, Alkaline Phosphatase 71 04/29/22 12:38: WBC 15.00 H, Hgb 12.3, Hct 37.1, Plt Count 322 Acetaminophen (Acetaminophen 325 Mg Tablet) 650 mg PO Q6H PRN PRN Reason: TEMP > 100.4' F OR PAIN 3-7 Enoxaparin Sodium (Enoxaparin 40 Mg/0.4 Ml) 40 mg SQ DAILY [facility] Last Admin: 04/29/22 19:04 Dose: 40 mg Ceftriaxone Sodium 1,000 mg/ (Sodium Chloride) 50 mls @ 100 mls/hr IVPB DAILY [facility]; Protocol Clindamycin HCl/Dextrose (Cleocin 600 Mg/50 Ml Ivpb) 50 mls @ 100 mls/hr IV Q8HR [facility]; Protocol Last Admin: 04/30/22 01:00 Dose: 50 mls Ibuprofen (Ibuprofen 400 Mg Tab) 800 mg PO Q8H PRN PRN Reason: Pain scale 8-10 (Severe) Last Admin: 04/29/22 19:00 Dose: 800 mg Ondansetron HCl (Ondansetron 4 Mg/2 Ml Vial) 4 mg IV Q6HP PRN PRN Reason: NAUSEA / VOMITING Sodium Chloride (Flush Normal Saline 10 Ml) 10 ml IV BID [facility] Last Admin: 04/29/22 21:00 Dose: 10 ml Imagings Data: CTAbdomen Pelvis W Contrast - 04/29/2022: FINDINGS: The lung bases are clear. The liver, spleen, pancreas, adrenal glands and kidneys are within normal limits. No bowel obstruction, free air, free fluid or abscess. The appendix is normal. No evidence of significant lymphadenopathy. No suspicious bony findings. Mild fat stranding lower pelvic subcutaneous fat in the region of the pannus. IMPRESSION: Mild fat stranding lower pelvic subcutaneous fat anteriorly, in the region of the pannus. No abscess. - Problems (1) Abdominal wall cellulitis Current Visit: Yes Status: Acute Plan: Cultures: 04/29 Abd Wound: Pending 04/29 BC: Pending Antibiotics: Current on IV Ceftriaxone and Clindamycin (04/29- ) Recommendations: Continue IV Ceftriaxone Stop Clindamycin and Switch to IV Vancomycin (04/30- ) ID will recommend antibiotic drug of choice and duration when cultures are available Plan to have Excisional Debridmenet of Abdominal Wall Infection with Abscess by Dr. Andrews in the afternoon (2) Leukocytosis Current Visit: Yes Status: Acute Plan: Secondary to Abdominal wall cellulitis WBC: 04/29: 15 02: 11.6, trending down ID will keep monitoring the WBC trends Conclusions/Impression: - Abdominal wall cellulitis - Leukocytosis - Obesity - Anxiety disorder - ADHA - Depression - Acute pain - Anxiety disorder\ADHD\depression - Class III obesity - Headache - History of drug abuse ID will closely monitor the patient for signs of infections with fever and WBC trends Case has been discussed with Dr. rFanklin N Thank you Dr. Ashley for consultation
[2022-04-30] MEDS: ENOXAPARIN 40 MG/0.4 ML SQ SCH (09:00)
[2022-04-30] MEDS: CEFTRIAXONE 1,000 MG in NA CHLORIDE 0.9% 50 ML IVPB SCH (09:58)
[2022-04-30] MEDS: ACETAMINOPHEN 325 MG TABLET PO PRN ×2 (10:50→20:52)
[2022-04-30] MEDS ORDERED: Ringers Lactate 1,000 ML IV ONE (14:17)
[2022-04-30] MEDS ORDERED: CELECOXIB 100 MG CAPSULE ONE (14:27)
[2022-04-30] MEDS ORDERED: ACETAMINOPHEN 500 MG TAB ONE (14:27)
[2022-04-30] MEDS ORDERED: propofoL 200 MG/20 ML VIAL IV ONE (14:31)
[2022-04-30] MEDS ORDERED: LIDOCAINE 2% MPF 5 ML VIAL ONE (14:32)
[2022-04-30] MEDS ORDERED: ROCURONIUM 50 MG/5 ML VIAL IV ONE (14:36)
[2022-04-30] MEDS ORDERED: MIDAZOLAM HCL 2 MG/2 ML INJ ONE (14:42)
[2022-04-30] MEDS ORDERED: KETAMINE HCL 500 MG/5 ML VIAL ONE (14:46)
[2022-04-30] MEDS ORDERED: KETOROLAC 30 MG/ML INJ ONE (14:48)
[2022-04-30] MEDS ORDERED: dexAMETHasone 10 MG/ML VIAL ONE (14:53)
[2022-04-30] MEDS ORDERED: NA CHLORIDE 0.9% 100 ML ONE (15:04)
[2022-04-30] MEDS ORDERED: LIDOCAINE JELLY 2% 5 ML SYRINGE TOP ONE (15:23)
--- NOTE | 2022-04-30 15:23 | P.OP ---
Preoperative diagnosis: Abdominal Wall Infection with Abscess Postoperative diagnosis: Abdominal Wall Infection with Abscess Primary procedure: Excisional Debridmenet of Abdominal Wall Infection with Abscess Anesthesia: GETA + Local Estimated blood loss: <10cc Specimen: cultures and debridement tissue Findings: ~ 7cm x 4cm to rectus muscle infected wound @ pannus Complications: None Transferred to: Recovery Room Condition: Good
[2022-04-30] MEDS ORDERED: GLYCOPYRROLATE 0.2 MG/ML SYR ONE (15:25)
[2022-04-30] MEDS ORDERED: NEOSTIGMINE 1 MG/ML -10 ML VIAL ONE (15:25)
[2022-04-30] MEDS: IBUPROFEN 400 MG TAB PO PRN (17:10)
[2022-04-30] MEDS ORDERED: POTASSIUM CL SA 10 MEQ TAB PO ONE (19:14)
--- NOTE | 2022-04-30 19:29 | CON ---
Date of Consultation: 04/30/2022 Brief History Of Present Illness: The patient is a 36-year-old female with past medical history for morbid obesity, anxiety disorder, ADD, depression, and drug abuse with complaints of abdominal pain, redness, and tenderness. She reported about 2 weeks ago she had induration of periumbilical area at a pannus in the midline near her previous scar. It got significantly worse red, tender, an d began draining fluid. She was concerned about infection in this area. She had fever, chills, and headache and no other complaints other than that. Past Medical History: Significant for obesity, anxiety, ADHD, depression, and drug abuse. Past Surgical History: Denies. Medications: Home medications none. Allergies: NO KNOWN DRUG ALLERGIES. Family History: Reviewed, noncontributory. Social History: She has not used any recreational drugs in 5 months. Other than that, no other asso ciated social high-risk behavior. Review of Systems: A 10-point review of systems other than HPI, denies. Physical Examination: General: At the time of examination, she is awake, alert, and oriented. Psychiatric: Appropriate. Conversive. HEENT: She is normocephalic. Sclerae anicteric. Mucous membranes moist. Oropharynx clear. Neck: Supple without JVD. Chest: Normal expansion and excursion. Cardiovascular: Regular rate and rhythm. Abdomen: Focused examination of the abdomen shows a draining area of purulent fluid from the midline at her pannus at the suprapubic position where her previous hysterectomy scar is. It is tender, flu ctuant, red, and consistent with infection. The remainder of examination is unremarkable. Laboratory Data: White blood cell count 11.6, hemoglobin 10.9, hematocrit 33.0, and platelet count w as 299. Sodium 142, potassium 3.5, chloride 98, carbon dioxide is 26, BUN 10, creatinine 0.8, and gl ucose is 142. She had imaging performed, which included a CT of the abdomen and pelvis officially re ad as mild fat stranding lower pelvis subcutaneous fat anteriorly in the region of the pannus. No ab scess appreciated. Assessment And Plan: This is a 36-year-old female who comes in with infected wound of the lower pann us. I suspect it has progressed into an abscess at this point as there was purulent material emanati ng from a midline opening. 1.IV fluid hydration. 2.Antibiotic coverage. 3.I have explained risks, benefits, and alternatives of excisional debridement and indicated procedu res including, but not limited to bleeding, infection, damage to surrounding tissue, need for further operative procedures, and ongoing wound care. The patient agrees to proceed as indicated. RICKIE/WYATT Voice ID: [id number] Report ID: [id number]
--- NOTE | 2022-04-30 21:15 | P.PN ---
Date of Service: 04/30/22 Subjective: lower abd pain continues with some purulent drainage no new/worsening symptoms anxious ROS: A complete review of systems was performed and is negative except as mentioned above Physical Exam: Gen: anxious, NAD HEENT: normal conjunctiva, sclera anicteric CV: regular rate & rhythm, no edema Pulm: non-labored respirations, clear bilaterally Abd: lower abdomen with erythema, small area with packing, purulent drainaage Neuro: normal speech, normal affect, moves all extremities vitals reviewed Problem List sepsis secondary to abscess and cellulitis of lower abdominal wall (present on admission) morbidly obese anxiety / depression / ADHD h/o drug dependence s/p I&D by ED leukocytosis improving general surgery consulted, plans for further I&D in OR avoid opioids / benzo's, pt is recovering from former dependence continue empiric antibiotics, coverage for MRSA likely bactrim on discharge f/u culture Code: full Dispo: home, likely tomorrow
[2022-04-30] MEDS ORDERED: DIPHENHYDRAMINE 25 MG TAB/CAP PO ONE (21:29)
--- NOTE | 2022-05-01 00:09 | OP ---
Date of Procedure: 04/30/2022 Surgeon: Nicola nAdrews MD, Preoperative Diagnosis: Abdominal wall infection with abscess. Postoperative Diagnosis: Abdominal wall infection with abscess. Procedure: Excisional debridement of abdominal wall infection with abscess. Anesthesia: General endotracheal plus local. Estimated Blood Loss: Less than 10 cc. Specimen: Cultures were sent for aerobic and anaerobic speciation as well as debridement tissue. Findings: Approximately 7 cm x 4 cm area of infected tissue with fat necrosis extending down to the rectus muscle in the region of the previous scar at the pannus. Complications: None. The patient was transferred to the recovery room in good condition. Procedure In Detail: After informed consent was obtained, the patient was brought to the operating r oom and prepped and draped in the usual sterile fashion. After adequate anesthesia was achieved, I m romana an elliptical incision down to subcutaneous tissues and immediately encountered abscess material. This was cultured for aerobic and anaerobic speciation. I then circumferentially removed all necro tic and nonviable tissue or infected appearing tissues using electrocautery, which extended from appr oximately 7 cm x 4 cm into the adipose tissue down to the abdominal wall and the rectus muscle sheath . This was removed on top of the rectus muscle sheath, which remained intact. I then sent the debri kathy tissue off, irrigated the area copiously. Hemostasis was achieved with electrocautery. The w ound was then packed with Vashe-soaked Kerlix and a sterile dressing placed over top. The patient to lerated the procedure without evidence of any complication and transferred to PACU in good condition. All counts were correct at the end of the case. RICKIE/WYATT Voice ID: [id number] Report ID: [id number]
[2022-05-01] MEDS: CLINDAMYCIN 600MG/D5W 50 ML IV SCH ×2 (00:44→07:56)
[2022-05-01 03:53] LABS: Phosphorus 1.9 mg/dL (2.5-4.9); Potassium 4.3 mmol/L (3.5-5.1)
[2022-05-01] MEDS: ACETAMINOPHEN 325 MG TABLET PO PRN (07:55)
[2022-05-01] MEDS: CEFTRIAXONE 1,000 MG in NA CHLORIDE 0.9% 50 ML IVPB SCH (07:57)
[2022-05-01] MEDS: ENOXAPARIN 40 MG/0.4 ML SQ SCH (07:58)
[2022-05-01] MEDS: POTASS/SODIUM PHOSPHATE 1 PKT POWD.PACK PO SCH ×2 (07:59→09:14)
[2022-05-01 08:25] VITALS: BP 135/73; TEMP 97.8
[2022-05-01] MEDS ORDERED: LIDOCAINE 5% 30 GM TUBE (for wound healing center only) TOP SCH (09:00)
[2022-05-01 09:31] VITALS: O2SAT 96
[2022-05-01] MEDS: IBUPROFEN 400 MG TAB PO PRN (09:54)
--- NOTE | 2022-05-04 21:56 | P.DS ---
Admission Date: 04/30/22 Discharge Date: 05/01/22 Disposition: ROUTINE DISCHARGE Reason for Admission: Abdominla pain\swelling\redness Consultations: ID - Dr. Franklin General Surgery - Dr. Andrews Brief History of Present Illness: anxiety disorder, ADD, depression, drug abuse who presents with complaint of abdominal pain\redness\tenderness. Patient reported that a week ago she noticed an induration in the periumbilical area. Patient reported the symptoms became worse over time. Patient rated pain as 5/10 in severity and described pain as burning quality. Patient reported associated signs and symptoms of fever, chills, Headache and patient denies any other signs or symptoms. Symptoms are aggravated or relieved by nothing. Patient decided to present to the hospital due to worsening symptoms. Of note, patient was seen at an outpatient facility 2 days ago where she was placed on antibiotics. Patient reported that she has only taken 2 doses of the antibiotics. Hospital Course: Problem List sepsis secondary to abscess and cellulitis of lower abdominal wall (present on admission) morbidly obese anxiety / depression / ADHD h/o drug dependence Patient presented with abdominal wall abscess and underwent I&D by Dr. Andrews. Cultures were obtained - no growth so far. Fever and leukocytosis improved/resolved. Stable for discharge home. Resume antibiotics as prescribed just prior to admission - keflex/bactrim - complete the ~7 days. Follow up with Dr. Andrews next week. Continue dressing changes / packing. Vital Signs/Physical Exam: Temp Pulse Resp BP Pulse Ox 97.8 F 84 19 135/73 96 05/01/22 08:00 05/01/22 08:00 05/01/22 08:00 05/01/22 08:00 05/01/22 08:00 Physical Exam: Gen: anxious, NAD HEENT: normal conjunctiva, sclera anicteric CV: regular rate & rhythm, no edema Pulm: non-labored respirations, clear bilaterally Abd: lower abdomen with dressing c/d/i, packing in place Neuro: normal speech, normal affect, moves all extremities Laboratory Data at Discharge: WBC 11.60 K/uL (4.3-10.9) H 04/30/22 02:11 Hgb 10.9 g/dL (12.0-15.0) L D 04/30/22 02:11 Hct 33.0 % (36.0-45.0) L 04/30/22 02:11 Plt Count 299 K/uL (152-406) 04/30/22 02:11 PT 13.2 SECONDS (9.5-12.5) H 04/29/22 19:23 INR 1.20 04/29/22 19:23 Sodium 142 mmol/L (136-145) 05/01/22 03:16 Potassium 4.3 mmol/L (3.5-5.1) D 05/01/22 03:16 BUN 12 mg/dL (7-18) 05/01/22 03:16 Creatinine 0.81 mg/dL (0.55-1.02) 05/01/22 03:16 Glucose 197 mg/dL (74-106) H 05/01/22 03:16 Phosphorus 1.9 mg/dL (2.5-4.9) L 05/01/22 03:16 Magnesium 2.1 mg/dL (1.6-2.4) 04/29/22 12:38 Total Bilirubin 0.3 mg/dL (0.2-1.0) 04/29/22 12:38 AST 13 U/L (15-37) L 04/29/22 12:38 ALT 13 U/L (13-56) 04/29/22 12:38 Alkaline Phosphatase 71 U/L (45-117) 04/29/22 12:38 Triglycerides 73 mg/dL (<150) 04/29/22 12:38 Cholesterol 157 mg/dL (<200) 04/29/22 12:38 HDL Cholesterol 40 mg/dL (40-60) 04/29/22 12:38 Cholesterol/HDL Ratio 3.93 04/29/22 12:38 Home Medications: Lidocaine 5% [Lidocaine HCl] 1 appl TOP DAILY #1 ea 05/01/22 New Medications: Lidocaine 5% [Lidocaine HCl] 1 appl TOP DAILY #1 ea Physician Discharge Instructions: Patient presented with abdominal wall abscess and underwent I&D by Dr. Andrews. Cultures were obtained - no growth so far. Fever and leukocytosis improved/resolved. Stable for discharge home. Resume antibiotics as prescribed just prior to admission - keflex/bactrim - complete the ~7 days. Follow up with Dr. Andrews next week. Continue dressing changes / packing. Followup: Nicola Andrews MD [ACTIVE - CAN ADMIT] - (Call to schedule follow up) Time spent managing pt's care (in minutes): 45
== END 2022-05-01 12:00 | disposition home or self-care (01) | DRG 854 ==
LOC: ER 11:27 → ERHOLD 15:53 → 4TH 04-30 08:06 → OBSVTOIN 04-30 12:30
PROVIDERS: ADMIT Hospitalist; ATTEND Hospitalist
PROC: 0W9F3ZZ Drainage of Abdominal Wall, Percutaneous Approach (ICD-10-PCS; 2022-04-30)
PROC: 0JB80ZZ Excision of Abdomen Subcutaneous Tissue and Fascia, Open Approach (ICD-10-PCS; principal; 2022-04-30 14:15)
DX: A41.9 Sepsis, unspecified organism (principal); L02.211 Cutaneous abscess of abdominal wall; L03.311 Cellulitis of abdominal wall; Z68.42 Body mass index [BMI] 45.0-49.9, adult; E66.01 Morbid (severe) obesity due to excess calories; F41.9 Anxiety disorder, unspecified; F90.9 Attention-deficit hyperactivity disorder, unspecified type; F32.A Depression, unspecified; D72.829 Elevated white blood cell count, unspecified; F17.210 Nicotine dependence, cigarettes, uncomplicated; R51.9 Headache, unspecified; Z28.310 Unvaccinated for COVID-19; Z20.822 Contact with and (suspected) exposure to COVID-19
CPT/HCPCS: 36415; 74177; 80048; 80053; 80061; 81003; 81025; 83036; 83605; 83735; 83880; 84100; 84439; 84443; 85025; 85610; 87040; 87070; 87075; 87205; 87811; 88304; 96365; 96366; 96375; 99285; G0378; J1100; J1200; J1650; J2001; J2250; J2405; J2704; J2710; J3370; J7040; J7120; Q9967